=== PATIENT | male | born 1960 | race Hispanic/Latino ===

== ENCOUNTER 2024-09-10 12:15 | Emergency (ER) | payer MEDICARE, SELFPAY ==
[2024-09-10 12:20] VITALS: BP 144/98
--- NOTE | 2024-09-10 13:05 | ED.GENMED ---
History of Present Illness
General
Chief Complaint: Musculo-Skeletal Complaint
Source: patient
Time Seen by Provider: 09/10/24 12:53
History of Present Illness
History of Present Illness:
64-year-old male presenting to the emergency department for evaluation of bilateral knee pain that has been ongoing for a few months, acutely worse over the last month or so with intermittent sharp pains causing a twitching like sensation to the
right lower extremity but notes pain is to both knees. Patient states that he has not been able to get medical care on the knees because he was just released from correction. Currently he has medical insurance but does not have a primary care provider
nor Ortho rider to follow-up with. He does note previous history of surgery to the right knee from years ago. He denies any fevers or infectious symptoms, weakness or numbness, calf pain or edema or any other concerns. Patient did not take
anything for pain prior to arrival today.
Past History
Past History
ED Past Medical History: Other
ED Past Surgical History: Orthopedic
Social History
Tobacco: Non-smoker
Alcohol: None
Drug: None
Personal: Single
Living: alone
Employment: Employed
Family History
Family History: CAD; Negative Early CAD
Review of Systems
Review of Systems
All Other Systems: ROS reviewed and negative except as documented in HPI and ROS
Phy Exam
Physical Exam
Physical Exam:
GENERAL: Alert , in no apparent distress
EYE: conjunctiva clear
Head: Normocephalic atraumatic
NECK: Supple,
ENT: mmm.
LUNGS: no acute respiratory distress
NEUROLOGICAL: Alert and oriented
SKIN: Warm and dry, skin intact.
MUSCULOSKELETAL: Right knee: Soft tissue swelling without any large joint effusion. No overlying erythema. Patient does allow for range of motion but has discomfort while doing so. No laxity within the joint. Left knee: No obvious edema, no
effusion, no overlying erythema, allows for full range of motion. Both extremities are otherwise warm and well-perfused without signs of trauma.
PSYCH: Normal and appropriate interaction.
Scores
Heart Failure Risk
Heart Failure Risk Score: Not Applicable
Heart Score for Chest Pain Patients
STEMI patient?: Not applicable
Withdrawal Assessment of Alcohol
Withdrawal Assessment Completed?: Not applicable
Course
Orders/Labs/Results
Orders:
Orders
09/10/24 12:24
CR Knee - Left 4 Or More View* Urgent
Comment:
Reason For Exam: pain
CR Knee- Right 4 Or More View* Urgent
Comment:
Reason For Exam: pain, swelling
09/10/24 13:05
Naproxen [Naprosyn] 500 mg PO NOW STA
Vital Signs
Initial and Last Documented VS:
Initial Vital Signs
Temp Pulse Resp BP Pulse Ox
97.4 F 96 18 144/98 98
09/10/24 12:20 09/10/24 12:20 09/10/24 12:20 09/10/24 12:20 09/10/24 12:20
Last Documented Vital Signs
Temp Pulse Resp BP Pulse Ox
97.4 F 96 18 144/98 98
09/10/24 12:20 09/10/24 12:20 09/10/24 12:20 09/10/24 12:20 09/10/24 12:20
MDM/Problems Addressed
Differential Diagnosis Includes:
Osteoarthritis, I do not have concern for septic joint, no concern for DVT, no trauma to suggest fracture
MDM/Problems Addressed:
64-year-old male presenting the ER for evaluation of gradually worsening knee pain bilaterally over the last few months. Has not been able to have medical care due to recently being incarcerated. Exam seems to be most consistent with
osteoarthritis. X-rays performed which show degenerative changes. Will treat with anti-inflammatories. I notified the primary care referral hotline to help expedite an outpatient follow-up visit and primary care for the patient as well as
provided him with information for orthopedics. Aware of return precautions. Stable for discharge home.
*Radiology
Radiology exam reviewed: preliminary read by ED provider (Degenerative changes, no fracture)
*Pulse Oximetry
Patient hypoxic: no
*Critical Care Note
Total Time (30-74mins, 75-104mins- exclusive of procedures): Not Applicable
ED Attending Note
-
Portions of this chart may have been created with voice recognition software.� Occasional wrong word or��sound alike� substitutions may have occurred due to the inherent limitations of voice recognition software.
Discharge Plan
Departure
Patient Disposition: Home (Routine Discharge)
Date of Disposition: 09/10/24
Time of Disposition: 13:05
Patient with high blood pressure during this ER visit?: Yes
Discharge Problem:
Bilateral knee pain
Instructions: Knee Pain (DC)
Prescriptions:
New
naproxen 500 mg tablet
500 mg PO BID PRN (Reason: Pain) Qty: 20 0RF
Rx Instructions:
Take with meals
No Action
naproxen sodium [Aleve] 220 MG tablet
2 tab PO DAILY
hydrocodone-acetaminophen 5 MG/500 MG tablet
1 tab PO Q4HPRN PRN (Reason: PAIN) Qty: 20 0RF
sulfamethoxazole-trimethoprim 1 TABLET tablet
1 tab PO BID Qty: 20 0RF
cephalexin 500 MG capsule
500 mg PO QID Qty: 44 0RF
albuterol sulfate [ProAir HFA] 90 mcg/actuation HFA aerosol inhaler
2 puff inhalation Q6H PRN (Reason: shortness of breath or wheezing) Qty: 8.5 0RF
prednisone 20 mg tablet
40 mg PO DAILY Qty: 8 0RF
sulfamethoxazole-trimethoprim [Bactrim DS] 800-160 mg tablet
1 tab PO BID Qty: 14 0RF
Referrals:
Oralia Bull I., DO [Active] - (Ortho - Please call for appointment)
Interventions
Interventions:
*Risk Screen - Suicide Last Done: 09/10/24 12:20
*General Assessment Last Done: 09/10/24 12:20
*Neglect/Abuse Screening Last Done: 09/10/24 12:20
*ED COVID-19 Vaccine History Last Done: 09/10/24 12:20
*Nursing Disposition Last Done: 09/10/24 13:28
ED-Musculoskeletal Assessment Last Done: 09/10/24 12:35
Discharge Date and Time
Print Language: JAPANESE
[2024-09-10] MEDS: NAPROSYN 500 MG PO (13:12)
== END 2024-09-10 14:01 | disposition home or self-care (01) ==
LOC: EMR 12:15
PROVIDERS: EMERGENCY PHYSICIAN Emergency Medicine
DX: M25.562 Pain in left knee (principal); M25.561 Pain in right knee
CPT/HCPCS: 99283; 73564

== ENCOUNTER 2024-10-14 16:59 | Emergency (ER) | payer MEDICARE, SELFPAY ==
[2024-10-14 17:01] VITALS: BP 144/102
--- NOTE | 2024-10-14 18:16 | ED.GENMED ---
History of Present Illness
General
Chief Complaint: Skin Problem
Source: patient
Time Seen by Provider: 10/14/24 18:12
History of Present Illness
History of Present Illness:
64-year-old male presenting to the emergency department for evaluation of left forearm infected cyst stating that he noticed a lump under his arm a little over a week ago and tried to did get the cyst out however now feels it is infected as it does
have some mild drainage. He notes a little bit of increased discomfort and some redness but no other concerns. Denies any fevers, chills, rigors or extremity weakness
Past History
Past History
ED Past Medical History: Other
ED Past Surgical History: Orthopedic
Social History
Tobacco: Non-smoker
Alcohol: None
Drug: None
Personal: Single
Living: alone
Employment: Employed
Family History
Family History: CAD; Negative Early CAD
Review of Systems
Review of Systems
All Other Systems: ROS reviewed and negative except as documented in HPI and ROS
Phy Exam
Physical Exam
Physical Exam:
GENERAL: Alert , in no apparent distress
EYE: conjunctiva clear
Head: Normocephalic atraumatic
NECK: Supple,
ENT: mmm.
LUNGS: no acute respiratory distress
NEUROLOGICAL: Alert and oriented
SKIN: Warm and dry, opening of the epidermal skin layer dorsal aspect mid left forearm with slight erythema and induration put no fluctuance. Mild tenderness
MUSCULOSKELETAL: well perfused.
PSYCH: Normal and appropriate interaction.
Scores
Heart Failure Risk
Heart Failure Risk Score: Not Applicable
Heart Score for Chest Pain Patients
STEMI patient?: Not applicable
Withdrawal Assessment of Alcohol
Withdrawal Assessment Completed?: Not applicable
Course
Vital Signs
Initial and Last Documented VS:
Initial Vital Signs
Temp Pulse Resp BP Pulse Ox
98.4 F 97 18 144/102 97
10/14/24 17:01 10/14/24 17:01 10/14/24 17:01 10/14/24 17:01 10/14/24 17:01
Last Documented Vital Signs
Temp Pulse Resp BP Pulse Ox
98.4 F 97 18 144/102 97
10/14/24 17:01 10/14/24 17:01 10/14/24 17:01 10/14/24 17:01 10/14/24 17:01
MDM/Problems Addressed
Differential Diagnosis Includes:
sebaceous cyst, abscess, cellulitis, infected cyst
MDM/Problems Addressed:
64-year-old male presenting to the ER for evaluation of possible infected cyst to the left forearm. He did attempt to cut the cyst out on his own which is what I suspect caused the infection. Advised patient not to continue attempting to remove on
his own as this is likely what led to infection. Will treat with doxycycline and refer to dermatology for further evaluation. Aware of return precautions.
*Pulse Oximetry
Patient hypoxic: no
*Critical Care Note
Total Time (30-74mins, 75-104mins- exclusive of procedures): Not Applicable
ED Attending Note
-
Portions of this chart may have been created with voice recognition software.� Occasional wrong word or��sound alike� substitutions may have occurred due to the inherent limitations of voice recognition software.
Discharge Plan
Departure
Patient Disposition: Home (Routine Discharge)
Date of Disposition: 10/14/24
Time of Disposition: 18:17
Patient with high blood pressure during this ER visit?: Yes
Discharge Problem:
Infected sebaceous cyst of skin
Instructions: Cellulitis (Skin Infection), Adult (DC)
Prescriptions:
New
doxycycline hyclate 100 mg tablet
100 mg PO BID 7 Days Qty: 14 0RF
No Action
naproxen sodium [Aleve] 220 MG tablet
2 tab PO DAILY
hydrocodone-acetaminophen 5 MG/500 MG tablet
1 tab PO Q4HPRN PRN (Reason: PAIN) Qty: 20 0RF
sulfamethoxazole-trimethoprim 1 TABLET tablet
1 tab PO BID Qty: 20 0RF
cephalexin 500 MG capsule
500 mg PO QID Qty: 44 0RF
albuterol sulfate [ProAir HFA] 90 mcg/actuation HFA aerosol inhaler
2 puff inhalation Q6H PRN (Reason: shortness of breath or wheezing) Qty: 8.5 0RF
prednisone 20 mg tablet
40 mg PO DAILY Qty: 8 0RF
sulfamethoxazole-trimethoprim [Bactrim DS] 800-160 mg tablet
1 tab PO BID Qty: 14 0RF
naproxen 500 mg tablet
500 mg PO BID PRN (Reason: Pain) Qty: 20 0RF
Rx Instructions:
Take with meals
Referrals:
Latosha Rodriguez, DO [Active] - (Dermatology - Please call for appointment)
Interventions
Interventions:
*Risk Screen - Suicide Last Done: 10/14/24 17:01
*General Assessment Last Done: 10/14/24 17:01
*Neglect/Abuse Screening Last Done: 10/14/24 17:01
*ED COVID-19 Vaccine History Last Done: 10/14/24 17:01
*Nursing Disposition Last Done: 10/14/24 18:46
ED-Skin Assessment Last Done: 10/14/24 18:30
Discharge Date and Time
Discharge Date/Time: 10/14/24 18:46
Print Language: SYRIAN
== END 2024-10-14 18:46 | disposition home or self-care (01) ==
LOC: EMR 16:59
PROVIDERS: EMERGENCY PHYSICIAN Student in an Organized Health Care Education/Training Program; FAMILY PHYSICIAN Internal Medicine
DX: L08.9 Local infection of the skin and subcutaneous tissue, unspecified (principal); L72.3 Sebaceous cyst
CPT/HCPCS: 99283

== ENCOUNTER 2025-05-15 09:32 | Emergency (ER) | payer OTHER, SELFPAY ==
[2025-05-15 09:40] VITALS: BP 117/79
[2025-05-15 09:43] VITALS: BP 117/79; BMI 26.0
[2025-05-15 10:01] VITALS: BP 128/84
[2025-05-15 11:00] VITALS: BP 106/71
--- NOTE | 2025-05-15 11:16 | ED.GENMED ---
History of Present Illness
General
Chief Complaint: Fall
Source: patient
Exam Limitations: none
Time Seen by Provider: 05/15/25 10:33
Nursing documentation reviewed up to this point in time: agreed with
History of Present Illness
History of Present Illness:
see MDM
Past History
Past History
ED Past Medical History: Other
ED Past Surgical History: Orthopedic
Social History
Tobacco: Non-smoker
Alcohol: None
Drug: None
Personal: Single
Living: alone
Employment: Employed
Family History
Family History: CAD; Negative Early CAD
Review of Systems
Review of Systems
Allergies reviewed?: Yes
All Other Systems: Not applicable
Phy Exam
Physical Exam
Physical Exam:
GENERAL: Alert , in no apparent distress
HEAD: Ark shaped like laceration approximately 6 cm to the top of his forehead, no active bleeding
NECK: In a c-collar
EYE: pupils equal and reactive, EOMs intact. No obvious dental injury
ENT: o/p clr, mmm. no hemotympanum
CARDIAC: Regular rate and rhythm, no edema
LUNGS: Clear breath sounds bilaterally, no acute respiratory distress, no wheezes/rales/rhonchi
chest wall nontender
ABDOMEN: Soft, without focal tenderness, no r/g, no cvat no bruising
NEUROLOGICAL: Alert and oriented, no focal neuro deficits, CN intact, 5/5 strength, sensation intact
SKIN: Warm and dry, patient has a draining wound 2 cm from the left anterior patellar regio that is a scab with pustule but no definitive abscess;n with surrounding erythema without induration, full range of motion of the knee, no effusion
MUSCULOSKELETAL: Arthritic changes of right knee, left knee with skin changes but no significant tenderness, full range of motion, both elbows nontender, full range of motion, no bruising, old scab on the left elbow, right second toe tender, no
deformity
PSYCH: Normal and appropriate interaction.
Course
Orders/Labs/Results
Orders:
Orders
05/15/25 10:55
CT Cervical Spine W/o Iv Contr Urgent
Comment:
Reason For Exam: fall head strike
CT Head W/o Iv Contrast Urgent
Comment:
Reason For Exam: fal head strike, laceration
CR Foot - Right Min 3 Views Urgent
Comment:
Reason For Exam: R 2nd toe pain, concerned for fx
CR Knee - Left 4 Or More View* Urgent
Comment:
Reason For Exam: L knee fall abrasion ,redness
Pelvis, 1 or 2 Views CR [CR Pelvis - 1 Or 2 Views ] Urgent
Comment:
Reason For Exam: flal
05/15/25 10:56
Acetaminophen [Tylenol] 650 mg PO NOW STA
Tetanus/Diphth/Acelpertussis [Adacel] 0.5 ml IM .ONCE ONE
05/15/25 13:48
Sulfamethox./Trimethoprim Ds [Bactrim Ds 800 mg/160 mg] 1 tablet PO NOW STA
05/15/25 14:02
Wound Culture [Wound/Abscess/Other Culture] Urgent
TERRY Source: Knee
Specimen Description: Left
Date Specimen was Collected: 05/15/25
Time Specimen was Collected: 13:56
Vital Signs
Initial and Last Documented VS:
Initial Vital Signs
BP
117/79
05/15/25 09:40
Last Documented Vital Signs
Temp Pulse Resp BP Pulse Ox
36.8 C 88 20 120/85 99
05/15/25 14:44 05/15/25 14:00 05/15/25 12:00 05/15/25 14:34 05/15/25 14:44
Procedures
Laceration Closure
Scalp:
Status of Wound: clean
Description of Wound Edges: ragged
Preparation: cleaned with saline
Anesthesia: 1% Lidocaine with epi
Revision/Debridement: minor revision
Wound exploration: explored to base- no FB
Type of Closure: layered closure
Skin Closure Material: 6-0 nylon (10) and 5-0 vicryl (2)
Number of sutures: 12
Incision/Drainage/Joint Aspiration
Left Anterior Knee:
Preparation: cleaned with Betadine
Type of procedure: incise
Nature of site: other (scab, pustule, opened up with 0.25 cm incision)
Description of abscess: less than 3cm
How much fluid was obtained?: scant amount
Fluid description: purulent
Treatment: left open for drainage
MDM/Problems Addressed
Differential Diagnosis Includes:
see MDM
MDM/Problems Addressed:
Note:
CHIEF COMPLAINT(S)
- Frequent falls and injuries from these falls
- Infected wound on the knee
- Possible broken toe
HISTORY OF PRESENT ILLNESS
The patient is 65 y/o M who requirese R knee replacement causing many falls, presents after fall today. He described tripping regularly and cited a specific incident this morning while walking in front of his mother�s house that resulted in falling
onto a structured brick area. He mentioned having an infected scrape on his knee from a previous fall, maybe 3 days ago but he cannot be sure, noting the area is painful to touch. Despite having falls nearly every day, there is an emphasis on todays
fall contributing to his current pain and concerns.
He also reported a broken toe, specifically the toe next to his big toe, from a month ago, albeit not diagnosed by a healthcare provider but self-assessed. Additionally, he uses a cane to assist with walking due to the instability caused by his
condition.
There is mention of a scheduled knee surgery meant to address his issues, though no specific timeline is confirmed.
pt has facial laceration to forehead, headache, is in c collar and c/o elbow pain b/l, knee pain b/l and R 2nd toe pain
tetanus outdated he says
pt has h/o mrsa
PAST MEDICAL AND SURIGICAL HISTORY
- Ongoing issues with knee requiring planned surgical intervention
ADDITIONAL HISTORY OBTAINED FROM SOURCES OTHER THAN THE PATIENT
None applicable as the patient was the sole source of information.
SOCIAL DETERMINANTS AFFECTING HEALTH
The patient lives alone but stated he was visiting his mothers residence at the time of the recent fall.
PHYSICAL EXAM
- Head and Neck: A laceration requiring sutures noted on the head.
- Musculoskeletal: Pain on examination of the left knee and a history of a possibly self-assessed broken toe; both areas remain in plan for further imaging assessment.
Nursing notes reviewed, and vital signs reviewed.
PLAN
- Administer antibiotics for the infected knee wound
- Sutures for the head laceration
- X-ray imaging scheduled for the left knee, hips, pelvis, and foot
- Consideration for pain management with acetaminophen upon request
DIFFERENTIAL DIAGNOSIS
The Differential Diagnosis includes, in no particular order and is not limited to:
1. Traumatic knee injury
2. Toe fracture
3. Cellulitis of the knee
4. Hematoma from injury
5. Contusion from falls
6. Patellar tendinitis
7. Joint infection (septic arthritis)
8. Complex regional pain syndrome
9. Peroneal nerve injury
10. Osteoarthritis impacting joint stability
CARE-UPDATE
05/15/25 - 13:21
The patients recent imaging reveals no fractures or bleeding in the brain following neck surgery. A significant cut on the neck necessitates cleaning, numbing, and suturing. The knee will be numbed, opened for drainage, cultured, and treated with
Bactrim. The second toe has an acute fracture on top of a bone spur from a prior injury; treatment includes alok taping and a hard-soled shoe. A walker is recommended due to arthritis, which is widespread. For arthritis pain, [id number]
options such as Tylenol Arthritis, ibuprofen, Aleve, or Celebrex are suggested.
*Pulse Oximetry
SaO2: 98
Oxygen Mode of Delivery: Room air
Patient hypoxic: no (99)
*Critical Care Note
Total Time (30-74mins, 75-104mins- exclusive of procedures): Not Applicable
ED Attending Note
-
Portions of this chart may have been created with voice recognition software.� Occasional wrong word or��sound alike� substitutions may have occurred due to the inherent limitations of voice recognition software.
Discharge Plan
Departure
Patient Disposition: Home (Routine Discharge)
Date of Disposition: 05/15/25
Time of Disposition: 14:35
Patient with high blood pressure during this ER visit?: No
Condition: Fair
Covid-19: Not Applicable
Discharge Problem:
Laceration of head, Fall, Cellulitis of knee, Arthritis, Fracture of right toe
Instructions: Head Injury in Adults (DC), Laceration Repair With Stitches (DC), Cellulitis (skin infection) in adults - ED (DC)
Prescriptions:
New
sulfamethoxazole-trimethoprim [Bactrim DS] 800-160 mg tablet
1 tab PO BID Qty: 20 0RF
No Action
naproxen sodium [Aleve] 220 MG tablet
2 tab PO DAILY
hydrocodone-acetaminophen 5 MG/500 MG tablet
1 tab PO Q4HPRN PRN (Reason: PAIN) Qty: 20 0RF
sulfamethoxazole-trimethoprim 1 TABLET tablet
1 tab PO BID Qty: 20 0RF
cephalexin 500 MG capsule
500 mg PO QID Qty: 44 0RF
albuterol sulfate [ProAir HFA] 90 mcg/actuation HFA aerosol inhaler
2 puff inhalation Q6H PRN (Reason: shortness of breath or wheezing) Qty: 8.5 0RF
prednisone 20 mg tablet
40 mg PO DAILY Qty: 8 0RF
sulfamethoxazole-trimethoprim [Bactrim DS] 800-160 mg tablet
1 tab PO BID Qty: 14 0RF
naproxen 500 mg tablet
500 mg PO BID PRN (Reason: Pain) Qty: 20 0RF
Rx Instructions:
Take with meals
doxycycline hyclate 100 mg tablet
100 mg PO BID 7 Days Qty: 14 0RF
Referrals:
NONE,* [Family Provider, Internal Medicine]
Activity Restrictions/Additional Instructions:
He the following injuries from your fall:
1.a scalp laceration. Keep this clean and dry for 24 hours. After that you can get it wet in the shower, you can use mild soap like baby soap or just warm water to make sure there is no dried blood over the sutures. Apply ointment like Neosporin
once a day. After 3 or 4 days you can avoid the ointment and just keep it clean and dry. They should be removed in 7 days. You can go to urgent care or see your family doctor or return for that.
2. You may have a mild head injury but no significant concussion so far. Your CAT scan was negative. Tylenol every 6 hours as needed, rest your brain from reading and TV and cell phone and computer if you are having headaches. Otherwise you can
do these activities normally.
3. You have a left knee cellulitis which is a skin infection from your previous fall and abrasion. I open this up a little bit but there is no pus there. Please apply warm compresses off-and-on for 5 to 10 minutes 3-4 times a day. Watch the line
drawn around the redness and make sure that the redness is not extending outside of that line. Also watch out for inability to walk, bend your knee, swelling to the knee, fevers or chills etc. and return to the emergency department immediately if
you have those. Take Bactrim 1 tablet twice a day for 10 days
4. You have a fracture of your right second middle phalanx of your toe. You can alok tape this to the big toe or to the other toe for the next 2 weeks or so. You can use a hard soled shoe. This should heal on its own. You can follow-up with
podiatry or orthopedics as needed
Interventions
Interventions:
*Risk Screen - Suicide Last Done: 05/15/25 09:43
*General Assessment Last Done: 05/15/25 09:43
*Neglect/Abuse Screening Last Done: 05/15/25 09:43
*ED- Fall Risk Assessment Last Done: 05/15/25 11:29
*ED COVID-19 Vaccine History Last Done: 05/15/25 11:29
*ED Influenza Vaccine History Last Done: 05/15/25 11:29
*Nursing Disposition Last Done: 05/15/25 14:44
ED-Musculoskeletal Assessment Last Done: 05/15/25 09:43
ED- Neurological Assessment Last Done: 05/15/25 09:43
ED-Skin Assessment Last Done: 05/15/25 09:43
Discharge Date and Time
Discharge Date/Time: 05/15/25 14:55
Print Language: FAROESE
[2025-05-15] MEDS: TYLENOL 650 MG PO (11:22)
[2025-05-15] MEDS: ADACEL 0.5 ML IM (11:23)
[2025-05-15] MEDS: BACTRIM DS 800 MG/160 MG 1 TABLET PO (14:33)
[2025-05-15 14:34] VITALS: BP 120/85
== END 2025-05-15 14:55 | disposition home or self-care (01) ==
LOC: EMR 09:32
PROVIDERS: EMERGENCY PHYSICIAN Student in an Organized Health Care Education/Training Program
DX: S01.01XA Laceration without foreign body of scalp, initial encounter (principal); S92.524A Nondisplaced fracture of middle phalanx of right lesser toe(s), initial encounter for closed fracture; L03.116 Cellulitis of left lower limb; B95.61 Methicillin susceptible Staphylococcus aureus infection as the cause of diseases classified elsewhere; Z16.11 Resistance to penicillins; W01.0XXA Fall on same level from slipping, tripping and stumbling without subsequent striking against object, initial encounter; Y93.01 Activity, walking, marching and hiking; Y92.008 Other place in unspecified non-institutional (private) residence as the place of occurrence of the external cause; M17.12 Unilateral primary osteoarthritis, left knee; M47.812 Spondylosis without myelopathy or radiculopathy, cervical region; M19.071 Primary osteoarthritis, right ankle and foot; R29.6 Repeated falls; Z23 Encounter for immunization; Z86.14 Personal history of Methicillin resistant Staphylococcus aureus infection
CPT/HCPCS: 99284; 12031; 10060; 90471; 70450; 72125; 72170; 73564; 73630; 87070; 87147; 87186; 87205; 90715